=== PATIENT | female | born 1940 | race Caucasian/White ===

== ENCOUNTER 2024-11-19 12:36 | Emergency (ER) | payer MEDICARE, SELFPAY ==
[2024-11-19 13:33] VITALS: BP 130/80; PULSE 96; TEMP 36.6; O2SAT 100; BMI 23.5
--- NOTE | 2024-11-19 13:48 | XR_ITS ---
The [address] [address] Patient Name: GEORGINA CRESPO MRN: [id number] date: 1940 Sex: F Assigned Patient Location: ER Current Patient Location: ER Accession/Order Number: [id number] Exam Date: 11/19/2024 14:18 Report Date: 11/19/2024 15:33 At the request of: ALL TONY Procedure: XR tibia fibula LT 2V EXAM: XR tibia fibula LT 2V HISTORY: left leg pain COMPARISON: None. TECHNIQUE: AP and lateral views of the left lower leg FINDINGS: No acute fracture is seen. The soft tissues appear unremarkable. XR/XR tibia fibula LT 2V IMPRESSION: No acute fracture. Electronically authenticated by: LAURIE CONNELL Date: 11/19/2024 15:33
--- NOTE | 2024-11-19 13:48 | XR_ITS ---
The [address] [address] Patient Name: GEORGINA CRESPO MRN: [id number] date: 1940 Sex: F Assigned Patient Location: ER Current Patient Location: ER Accession/Order Number: [id number] Exam Date: 11/19/2024 14:18 Report Date: 11/19/2024 15:33 At the request of: ALL TONY Procedure: XR femur LT 2V History: Left lower extremity pain and swelling after syncope and fall. XR femur LT 2V: 11/19/2024 2:18 PM EST COMPARISON: None. XR/XR femur LT 2V IMPRESSION: 1. No fracture or dislocation of the left femur is seen. 2. There are vascular calcifications throughout the thigh. Electronically authenticated by: CANDICE CLAYTON Date: 11/19/2024 15:33
--- NOTE | 2024-11-19 13:48 | CT_ITS ---
The [address] [address] Patient Name: GEORGINA CRESPO MRN: [id number] date: 1940 Sex: F Assigned Patient Location: ER Current Patient Location: ER Accession/Order Number: [id number] Exam Date: 11/19/2024 14:29 Report Date: 11/19/2024 15:36 At the request of: ALL TONY Procedure: CT lumbar spine wo con EXAM: CT lumbar spine wo con HISTORY: fall, left leg weakness COMPARISON: None. TECHNIQUE: Axial noncontrast CT imaging of the lumbar spine was performed with coronal and sagittal reformats. This CT exam was performed using one or more of the following dose reduction techniques: Automated exposure control, adjustment of the MA and/or kV according to patient size, or use of iterative reconstruction technique. FINDINGS: Alignment: Minimal dextrocurvature of the lumbar spine. No substantial subluxation. Vertebrae: Vertebral body heights are maintained. No acute fracture. Mineralization is grossly appropriate. Degenerative changes: T12-L1: No substantial canal or foraminal stenosis. L1-L2: No substantial canal or foraminal stenosis. L2-L3: Minimal disc bulge. Mild facet arthropathy. No substantial canal or foraminal stenosis. L3-L4: Mild eccentric left diffuse disc bulge with mild disc height loss. Moderate left and mild right facet arthropathy. No substantial canal stenosis. Mild left foraminal stenosis. Right foramen is patent. L4-L5: Moderate disc height loss and vacuum disc. Small Schmorl's node involving superior plate of L5. Diffuse disc bulge slightly eccentric to the left. Mild facet arthropathy. No substantial canal or foraminal stenosis. L5-S1: Mild right facet arthropathy. No substantial canal or foraminal stenosis. Upper Sacrum: No focal lesion identified. Additional comments: Vascular sclerosis. Visualized portion of the lungs are clear. CT/CT lumbar spine wo con IMPRESSION: No acute fracture or malalignment of the lumbar spine. Mild degenerative change described above. Electronically authenticated by: MIKAYLA JUARES Date: 11/19/2024 15:36
--- NOTE | 2024-11-19 13:48 | ECG_ITS ---
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
--- NOTE | 2024-11-19 13:48 | XR_ITS ---
[address] [address] Patient Name: GEORGINA CRESPO MRN: [id number] date: 1940 Sex: F Assigned Patient Location: ER Current Patient Location: ER Accession/Order Number: [id number] Exam Date: 11/19/2024 14:18 Report Date: 11/19/2024 15:18 At the request of: ALL TONY Procedure: XR chest 1V EXAM: XR chest 1V INDICATION: Syncope. COMPARISON: None. TECHNIQUE: Single frontal view of the chest FINDINGS: Normal cardiomediastinal contours. No acute infiltrative process. No pleural effusion or pneumothorax. No acute osseous abnormality. Left-sided cardiac loop recorder noted. XR/XR chest 1V IMPRESSION: No acute cardiopulmonary process. Electronically authenticated by: ALINA TEMPLETON Date: 11/19/2024 15:18
--- NOTE | 2024-11-19 13:48 | XR_ITS ---
The [address] [address] Patient Name: GEORGINA CRESPO MRN: [id number] date: 1940 Sex: F Assigned Patient Location: ER Current Patient Location: ER Accession/Order Number: [id number] Exam Date: 11/19/2024 14:18 Report Date: 11/19/2024 15:34 At the request of: ALL TONY Procedure: XR pelvis 1-2V HISTORY: Left leg pain and swelling after a fall. XR pelvis 1-2V: 11/19/2024 2:18 PM EST COMPARISON: None. XR/XR pelvis 1-2V IMPRESSION: 1. No fracture is seen. 2. There are degenerative changes of the visualized lower lumbar spine and sacroiliac joints. 3. No significant joint space narrowing of either hip. Electronically authenticated by: CANDICE CLAYTON Date: 11/19/2024 15:34
--- NOTE | 2024-11-19 13:49 | CT_ITS ---
The [address] [address] Patient Name: GEORGINA CRESPO MRN: [id number] date: 1940 Sex: F Assigned Patient Location: ER Current Patient Location: ER Accession/Order Number: [id number] Exam Date: 11/19/2024 14:29 Report Date: 11/19/2024 15:11 At the request of: ALL TONY Procedure: CT head/brain wo con EXAM: CT head/brain wo con HISTORY: Syncope COMPARISON: None. TECHNIQUE: Contiguous transaxial images were obtained from skull base to vertex without administration of intravenous contrast. Dose reduction: mA and/or kV are were adjusted by automated exposure control software based upon patients height and weight. FINDINGS: There is no focal scalp soft tissue swelling or acute calvarial fracture. The visualized globes and orbits are grossly normal. There is no paranasal sinus air-fluid level. There is likely a tiny right ethmoid osteoma. 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 Bilateral mastoid air cells are clear. The ventricles and sulci are mildly prominent bilaterally. There is mild periventricular and deep subcortical white matter low-attenuation consistent with small vessel ischemic disease. There is no intraparenchymal hemorrhage, extraaxial fluid collection, mass lesion, or acute large territory ischemia by noncontrast CT. CT/CT head/brain wo con IMPRESSION: 1. No acute intracranial hemorrhage or acute large territory ischemia by noncontrast CT. 2. Cerebral atrophy and chronic small vessel ischemic disease. If the patient has a focal neurologic deficit or there is clinical suspicion for acute cerebrovascular accident, brain MRI would be recommended for further evaluation. Electronically authenticated by: ELICIA POTTS Date: 11/19/2024 15:11
--- NOTE | 2024-11-19 13:52 | ED.GENADUL1 ---
HPI HPI - General Adult General Chief complaint: Fall Stated complaint: FALL; L LEG PAIN & L LEG SWELLING Time Seen by Provider: 11/19/24 13:39 Source: patient Mode of arrival: Wheelchair Limitations: no limitations History of Present Illness HPI narrative: Patient is an 83-year-old female who presents to the emergency department for swelling and pain in the left leg. She states she fell at a meat market in [place] where she lives on 11/10/2025. She had a syncopal episode at the market, she states she was leaning over and felt lightheaded, she states she passed out in the staff of the market was helping her up. She felt fine afterwards so she went home and has been visiting with her son locally for the holiday. She states she has continued to have pain and swelling in the left leg. She denies neck or back pain. She has not had any persistent headaches, visual changes, chest pain, shortness of breath or weakness. She states she fell twice today due to weakness and pain in the left leg. She has not noticed any redness, warmth, color changes. No open wounds or drainage. Pain radiates from the left thigh down the leg and into the plantar aspect of the foot. No medications taken prior to arrival. She states today she had difficulty pushing herself up off the toilet and has not been able to get up out of a seated position from a chair. Related Data Home Medications ?Medication ?Instructions ?Recorded ?Confirmed amlodipine 10 mg tablet 10 mg PO DAILY 11/19/24 11/19/24 atorvastatin 40 mg tablet 40 mg PO DAILY 11/19/24 11/19/24 bupropion HCl 150 mg 24 hr tablet, 150 mg PO DAILY 11/19/24 11/19/24 extended release Previous Rx's ?Medication ?Instructions ?Recorded hydrocodone 5 mg-acetaminophen 325 1 tab PO Q6H PRN pain 3 days #12 11/19/24 mg tablet tabs methocarbamol 500 mg tablet 500 mg PO Q8H PRN muscle pain #11/19/24 tabs Opioid HPI Opioid Management Most Recent Opioid Data: No Data to Display Review of Systems ROS Constitutional Denies: fever or chills Ears, nose, mouth, and throat Denies: throat pain or nasal discharge Cardiovascular Denies: chest pain Respiratory Denies: shortness of breath Gastrointestinal Denies: nausea or vomiting Musculoskeletal Reports: extremity pain and extremity swelling; Denies: back pain, neck pain or joint pain Integumentary/Breast Denies: rash Neurological Reports: weakness in extremities; Denies: headache or numbness in extremities Hematologic/Lymphatic Denies: easy bruising or easy bleeding PFSH PFS Social History Little interest or pleasure in doing things: not at all Feeling down, depressed, or hopeless: not at all Exam Narrative Exam Narrative: Gen.: Awake, alert, in no distress Head: Normocephalic, atraumatic ENT: Moist mucous membranes, C-spine nontender with no facial or dental injury Respiratory: No respiratory distress, lungs clear bilaterally Cardio: Regular rate and rhythm Back: No bony point tenderness of the T-spine or L-spine Extremities: Left thigh is slightly edematous compared to the right, no erythema or warmth. Thigh and left calf are soft and compressible. Normal dorsiflexion and plantarflexion of the lower extremities with no decrease in sensation to the medial thighs Psych: Normal mood and affect Neuro: No focal neuro deficit Skin: Warm, dry, intact Constitutional Vital Signs, click to edit/add: Last Vital Signs Temp 98 F 11/19/24 13:33 Pulse 96 H 11/19/24 13:33 Resp 11/19/24 13:33 BP 130/80 11/19/24 13:33 Pulse Ox 100 11/19/24 13:33 O2 Del Method Room Air 11/19/24 13:33 Course Vital Signs Vital signs: Vital Signs Temperature 98 F 11/19/24 13:33 Pulse Rate 96 H 11/19/24 13:33 Respiratory Rate 11/19/24 13:33 Blood Pressure 130/80 11/19/24 13:33 Pulse Oximetry 100 11/19/24 13:33 Oxygen Delivery Method Room Air 11/19/24 13:33 Temperature 98 F 11/19/24 13:33 Pulse Rate 96 H 11/19/24 13:33 Respiratory Rate 11/19/24 13:33 Blood Pressure 130/80 11/19/24 13:33 Pulse Oximetry 100 11/19/24 13:33 Oxygen Delivery Method Room Air 11/19/24 13:33 Medical Decision Making MDM Narrative Medical decision making narrative: Patient has discomfort radiating from the left hip into the groin with swelling noted of the left upper leg, consistent with an injury from last week after her syncopal episode. She has no calf pain, redness or or firmness of the legs. Laboratory studies reviewed and noted showing mild NANCY and hyponatremia, patient states this is consistent with her previous labs. CTs of the head, lumbar spine, x-rays of the pelvis, left femur and left tib-fib do not show any acute injury. Patient was medicated for pain with improvement and ambulated in the emergency department. She is very eager for discharge home and does not wish to be admitted. Her son is comfortable with this treatment plan. She will apply ice to her hip, groin and leg. She understands she should return to the emergency department if symptoms change or worsen. A short course of pain medications and muscle relaxants given for home. She was encouraged to drink fluids with electrolytes for her low sodium. SUPERVISED APC VISIT, PHYSICIAN ATTESTATION: Based on the medical record the care appears appropriate. ? Medical Records Medical records reviewed: Yes I reviewed the patient's medical records Lab Data Lab results reviewed: Yes I reviewed the patient's lab results Labs: Lab Results 11/19/24 Range/Units 14:08 WBC 13.2 H (4.0-11.0) 10^3/uL RBC 5.14 (4.20-5.40) 10^6/uL Hgb 15.2 (12.0-16.0) g/dL Hct 45.2 (36.0-48.0) % MCV 87.9 (81.0-99.0) fL MCH 29.6 (26.7-34.0) pg MCHC 33.6 (29.9-35.2) g/dL RDW 12.7 (11.0-15.0) % Plt Count 290 (150-450) 10^3/uL MPV 10.8 (9.5-13.5) fL Neut % (Auto) 66.5 (43.0-75.0) % Lymph % (Auto) 17.8 L (20.5-60.0) % [place] % (Auto) 10.3 (1.7-12.0) % Eos % (Auto) 4.2 (0.9-7.0) % Baso % (Auto) 0.7 (0.2-2.0) % Neut # (Auto) 8.8 H (1.4-6.5) 10^3/uL Lymph # (Auto) 2.4 (1.2-3.8) 10^3/uL [place] # (Auto) 1.4 H (0.3-0.8) 10^3/uL Eos # (Auto) 0.6 (0.0-0.7) 10^3/uL Baso # (Auto) 0.1 (0.0-0.1) 10^3/uL Abs Immat Gran (auto) 0.07 H (0.00-0.03) 10^3/uL Imm/Tot Granulo (auto) 0.5 (0.0-0.5) % PT 10.5 (9.0-11.6) sec INR 0.99 Sodium 131 L (136-145) mmol/L Potassium 4.1 (3.5-5.1) mmol/L Chloride 95 L (98-107) mmol/L Carbon Dioxide 23.3 (21.0-32.0) mmol/L Anion Gap 16.8 BUN 27.0 H (7.0-18.0) mg/dL Creatinine 1.74 H (0.55-1.02) mg/dL Est GFR ( Amer) 34 L (>=60 mL/min/1.73m^2) Est GFR (Non-Af Amer) 28 L (>=60 mL/min/1.73m^2) BUN/Creatinine Ratio 15.5 Glucose 108 H (74-106) mg/dL Calcium 9.4 (8.5-10.1) mg/dL Total Bilirubin 1.1 H (0.2-1.0) mg/dL AST 15 (15-37) U/L ALT 12 L (14-59) U/L Alkaline Phosphatase 71 (46-116) U/L Troponin I High Sens 20.0 (4.0-51.3) pg/mL NT-Pro-B Natriuret Pep 718.0 (<=1800.0) pg/mL Total Protein 7.2 (6.4-8.2) g/dL Albumin 3.7 (3.4-5.0) g/dL Globulin 3.5 g/dL Albumin/Globulin Ratio 1.1 TSH 3.731 (0.358-3.740) uIU/mL Imaging Data CT scan - head: Attestation: I have reviewed the pertinent imaging results. Radiologist's impression: ITS Impressions Chest X-Ray 11/19/24 13:48 IMPRESSION: No acute cardiopulmonary process. Electronically authenticated by: ALINA TEMPLETON Date: 11/19/2024 15:18 Femur X-Ray 11/19/24 13:48 IMPRESSION: 1. No fracture or dislocation of the left femur is seen. 2. There are vascular calcifications throughout the thigh. Electronically authenticated by: Phonitive - Touchalize Date: 11/19/2024 15:[address] 11/19/24 13:48 IMPRESSION: No acute fracture or malalignment of the lumbar spine. Mild degenerative change described above. Electronically authenticated by: MIKAYLA JUARES Date: 11/19/2024 15:36 Pelvis X-Ray 11/19/24 13:48 IMPRESSION: 1. No fracture is seen. 2. There are degenerative changes of the visualized lower lumbar spine and sacroiliac joints. 3. No significant joint space narrowing of either hip. Electronically authenticated by: Phonitive - [employer] Date: 11/19/2024 15:34 Tibia/Fibula X-Ray 11/19/24 13:48 IMPRESSION: No acute fracture. Electronically authenticated by: LAURIE CONNELL Date: 11/19/2024 15:[address] 11/19/24 13:49 IMPRESSION: 1. No acute intracranial hemorrhage or acute large territory ischemia by noncontrast CT. 2. Cerebral atrophy and chronic small vessel ischemic disease. If the patient has a focal neurologic deficit or there is clinical suspicion for acute cerebrovascular accident, brain MRI would be recommended for further evaluation. Electronically authenticated by: ELICIA POTTS Date: 11/19/2024 15:11 ECG Data Attestation: I personally reviewed and interpreted this ECG as follows: (Normal sinus rhythm at a rate of 77, no acute ST elevation or ectopy. EKG reviewed by attending physician) Discharge Plan Discharge Chief Complaint: Fall Clinical Impression: Syncope, Left leg pain Patient Disposition: Home, Self-Care Time of Disposition Decision: 15:59 Condition: Good Prescriptions / Home Meds: New hydrocodone-acetaminophen 5-325 mg tablet 1 tab PO Q6H PRN (Reason: pain) 3 Days Qty: 12 0RF Rx Instructions: DX: M79.605 methocarbamol 500 mg tablet 500 mg PO Q8H PRN (Reason: muscle pain) Qty: 12 0RF No Action amlodipine 10 mg tablet 10 mg PO DAILY atorvastatin 40 mg tablet 40 mg PO DAILY bupropion HCl 150 mg tablet extended release 24 hr 150 mg PO DAILY Print Language: Cambodian Instructions: Leg Pain (ED) Referrals: Physician,Non-Staff, MD [Primary Care Provider] - 1 week
[2024-11-19] MEDS: KETOROLAC TROMETHAMINE 30 MG/ML VIAL 15 MG IVP (14:47)
[2024-11-19] MEDS: METHOCARBAMOL 500 MG TABLET PO (14:48)
[2024-11-19] MEDS: FENTANYL CITRATE/PF 100 MCG/2 ML VIAL 50 MCG IV (14:48)
[2024-11-19] MEDS: ONDANSETRON PF 4 MG/2 ML VIAL IV (14:48)
[2024-11-19 14:57] LABS: Basophils Absolute Auto 0.1 10^3/uL (0.0-0.1); Basophils Percent Auto 0.7 % (0.2-2.0); Eosinophils Absolute Auto 0.6 10^3/uL (0.0-0.7); Eosinophils Percent Auto 4.2 % (0.9-7.0); Hematocrit 45.2 % (36.0-48.0); Hemoglobin 15.2 g/dL (12.0-16.0); Immature Granulocytes Abs Auto 0.07 10^3/uL (0.00-0.03); Immature Granulocytes Pct Auto 0.5 % (0.0-0.5); Lymphocytes Absolute Auto 2.4 10^3/uL (1.2-3.8); Lymphocytes Percent Auto 17.8 % (20.5-60.0); Mean Corpuscular HGB Conc 33.6 g/dL (29.9-35.2); Mean Corpuscular Hemoglobin 29.6 pg (26.7-34.0); Mean Corpuscular Volume 87.9 fL (81.0-99.0); Mean Platelet Volume 10.8 fL (9.5-13.5); Monocytes Absolute Auto 1.4 10^3/uL (0.3-0.8); Monocytes Percent Auto 10.3 % (1.7-12.0); Neutrophils Absolute Auto 8.8 10^3/uL (1.4-6.5); Neutrophils Percent Auto 66.5 % (43.0-75.0); Platelet Count 290 10^3/uL (150-450); Red Blood Count 5.14 10^6/uL (4.20-5.40); Red Cell Distribution Width 12.7 % (11.0-15.0); White Blood Count 13.2 10^3/uL (4.0-11.0)
[2024-11-19 15:16] LABS: Alanine Aminotransferase 12 U/L (14-59); Albumin Globulin Ratio 1.1; Albumin Level 3.7 g/dL (3.4-5.0); Alkaline Phosphatase 71 U/L (46-116); Anion Gap 16.8; Aspartate Amino Transferase 15 U/L (15-37); BUN Creatinine Ratio 15.5; Bilirubin Total 1.1 mg/dL (0.2-1.0); Calcium 9.4 mg/dL (8.5-10.1); Carbon Dioxide 23.3 mmol/L (21.0-32.0); Chloride 95 mmol/L (98-107); Estimated GFR (African America 34 (>=60 mL/min/1.73m^2); Estimated GFR (Non-African Ame 28 (>=60 mL/min/1.73m^2); Globulin 3.5 g/dL; Glucose 108 mg/dL (74-106); Potassium 4.1 mmol/L (3.5-5.1); Sodium 131 mmol/L (136-145); Total Protein 7.2 g/dL (6.4-8.2)
[2024-11-19 15:26] LABS: Thyroid Stimulating Hormone 3.731 uIU/mL (0.358-3.740)
[2024-11-19 15:33] LABS: INR 0.99; Prothrombin Time 10.5 sec (9.0-11.6)
[2024-11-19 16:23] VITALS: BP 138/87; PULSE 87; O2SAT 95
== END 2024-11-19 16:27 | disposition home or self-care (01) ==
PROVIDERS: Physician Assistant; Emergency Provider Emergency Medicine
DX: R55 Syncope and collapse (principal); M79.605 Pain in left leg; Z91.81 History of falling; M79.89 Other specified soft tissue disorders
CPT/HCPCS: 36415; 70450; 71045; 72131; 72170; 73552; 73590; 80053; 83880; 84443; 84484; 85025; 85610; 93005; 96374; 96375; 99285; J1885; J2405; J3010

== ENCOUNTER 2024-11-25 16:45 | Emergency (ER) | payer MEDICARE, SELFPAY ==
[2024-11-25 16:47] VITALS: BP 110/65; PULSE 75; TEMP 36.6; O2SAT 95; BMI 23.5
--- NOTE | 2024-11-25 17:09 | ED.GENADUL1 ---
HPI HPI - General Adult General Chief complaint: Extremity Problem, Nontraumatic Stated complaint: Leg Swelling Time Seen by Provider: 11/25/24 16:48 Source: patient Mode of arrival: Wheelchair History of Present Illness HPI narrative: Patient presenting to the emergency department department as a follow-up from her visit on November 19. She was here because she passed out, she been having pain in her leg after falling. Had a full workup. Has papers at bedside showing the labs, imaging that were done on the CD. States that she was going to go back to [place] to follow-up with her primary care doctor, but has not gone back there yet. She states that since the first she has had persistent hip pain. She states it has not gotten any better since she was here in the first, states that it has not gotten any worse either. She has not gone back to [place] so she came here because she did not know where else to go. She states the pain is still persisted and has not gone away. Patient states that it been there for approximately 2 to 3 weeks. He makes ambulating difficult. Is not having any leg pain, states it is all in the hip which she feels that there is a knot at the top of the front of the hip. Patient denies weakness, numbness, tingling, perianal or saddle anesthesia. No back pain. No leg pain, calf pain. No other complaints at this time Related Data Home Medications ?Medication ?Instructions ?Recorded ?Confirmed amlodipine 10 mg tablet 10 mg PO DAILY 11/19/24 11/19/24 atorvastatin 40 mg tablet 40 mg PO DAILY 11/19/24 11/19/24 bupropion HCl 150 mg 24 hr tablet, 150 mg PO DAILY 11/19/24 11/25/24 extended release latanoprost 0.005 % eye drops 1 drp ophthalmic (eye) DAILY 11/25/24 11/25/24 mirtazapine 45 mg tablet 45 mg PO DAILY 11/25/24 11/25/24 timolol maleate 0.5 % eye drops 1 drp ophthalmic (eye) DAILY 11/25/24 11/25/24 trospium 60 mg capsule,extended 60 mg PO DAILY 11/25/24 11/25/24 release 24 hr Allergies Allergy/AdvReac Type Severity Reaction Status Date / Time Unable to Assess Allergy Verified 11/25/24 16:57 Opioid HPI Opioid Management Most Recent Opioid Data: No Data to Display Review of Systems ROS Narrative Negative unless otherwise stated in the HPI PFSH [facility] Social History Little interest or pleasure in doing things: not at all Feeling down, depressed, or hopeless: not at all Exam Narrative Exam Narrative: General: NAD, AAOx3, no distress Eyes: PERRL, EOMI, lids/conjunctiva normal. Respiratory: respiratory effort normal, speaks in full sentences, no tripod position, no accessory muscle use. Lungs clear to auscultation without rhonchi, wheezes, rales Cardiac: Regular rate and rhythm, no edema, regular s1/s2, no m/g/r Abdomen: Soft, ND/NT. No evidence of fluid wave. No pulsatile masses on exam, rebound tenderness, Rossi sign or pain over Mcburney's point. Ext: To the left hip, anteriorly at patient's hip patient has tenderness with palpation of the greater trochanteric, there is no hematoma, bruise, weakness, sensory change. Patient has pain, and states that she feels pain in the hip, ambulated well into the ED. No weakness. Constitutional Vital Signs, click to edit/add: Last Vital Signs Temp 97.8 F 11/25/24 16:47 Pulse 75 11/25/24 16:47 Resp 18 11/25/24 16:47 BP 110/65 11/25/24 16:47 Pulse Ox 95 11/25/24 16:47 O2 Del Method Room Air 11/25/24 16:47 Course Vital Signs Vital signs: Vital Signs Temperature 97.8 F 11/25/24 16:47 Pulse Rate 75 11/25/24 16:47 Respiratory Rate 18 11/25/24 16:47 Blood Pressure 110/65 11/25/24 16:47 Pulse Oximetry 95 11/25/24 16:47 Oxygen Delivery Method Room Air 11/25/24 16:47 Temperature 97.8 F 11/25/24 16:47 Pulse Rate 75 11/25/24 16:47 Respiratory Rate 18 11/25/24 16:47 Blood Pressure 110/65 11/25/24 16:47 Pulse Oximetry 95 11/25/24 16:47 Oxygen Delivery Method Room Air 11/25/24 16:47 Medical Decision Making [facility] Narrative Medical decision making narrative: Had long discussion with patient, chart was reviewed, images were reviewed, workup from the first was reviewed. Had a full complete workup. States the pain has not changed in any way, she has not gone back to [place] or follow-up with her PCP. Discussed with patient she is here for complete workup, there is no indication for ultrasound which is the only test they have not done at this time, she has no leg pain, no leg swelling, no calf pain or tenderness. Given the fall and hip pain afterwards, she has been ambulating, if she feels that there is spasming pain in the muscle overlying, she has follow-up with her PCP for potential MRI Advanced guidance has been given. Vss, pex is benign at this time. Pt to fu with pcp 1-2 days for reeval, rter should sx worsen, persist or become worrysome in any way. All incidental laboratory studies, EKG, radiologic findings have been noted and discussed with patient. Patient was reevaluated with a benign exam at this time. Pt expressed understanding and agreement with plan of care at this time. Will fu as planned. Pt stable for discharge. Discharge Plan Discharge Chief Complaint: Extremity Problem, Nontraumatic Clinical Impression: Acute hip pain Patient Disposition: Home, Self-Care Time of Disposition Decision: 17:29 Prescriptions / Home Meds: No Action amlodipine 10 mg tablet 10 mg PO DAILY atorvastatin 40 mg tablet 40 mg PO DAILY bupropion HCl 150 mg tablet extended release 24 hr 150 mg PO DAILY latanoprost 0.005 % drops 1 drp OPHTHALMIC (EYE) DAILY mirtazapine 45 mg tablet 45 mg PO DAILY timolol maleate 0.5 % drops 1 drp OPHTHALMIC (EYE) DAILY trospium 60 mg capsule,extended release 24hr 60 mg PO DAILY Print Language: Polish Instructions: Arthralgia (ED), Hip Pain (ED) Additional Instructions: Follow-up with your PCP tomorrow as previously discussed and scheduled. Return to the emergency department should symptoms worsen or become worrisome in any way Referrals: Physician,Non-Staff, MD [Primary Care Provider] - 1 week
--- NOTE | 2024-11-25 17:38 | PC.NURSE ---
no redness, swelling or bruising to site of complaint
== END 2024-11-25 17:44 | disposition home or self-care (01) ==
PROVIDERS: Emergency Provider Emergency Medicine
DX: M25.552 Pain in left hip (principal)
CPT/HCPCS: 99281

== ENCOUNTER 2024-12-17 15:24 | Outpatient (OUT) | payer MEDICARE, SELFPAY ==
[2024-12-17 16:46] LABS: Anion Gap 10.3; BUN Creatinine Ratio 24.7; Calcium 10.1 mg/dL (8.5-10.1); Carbon Dioxide 29.7 mmol/L (21.0-32.0); Chloride 98 mmol/L (98-107); Estimated GFR (African America 33 (>=60 mL/min/1.73m^2); Estimated GFR (Non-African Ame 27 (>=60 mL/min/1.73m^2); Glucose 153 mg/dL (74-106); Sodium 133 mmol/L (136-145)
== END 2024-12-17 15:25 | disposition home or self-care (01) ==
LOC: LAB 15:37
DX: R29.898 Other symptoms and signs involving the musculoskeletal system (principal); R20.0 Anesthesia of skin
CPT/HCPCS: 36415; 80048